=== PATIENT | male | born 1985 | race African-American/Black ===

== ENCOUNTER 2023-05-03 14:18 | Emergency (ER) | payer OTHER ==
[2023-05-03] MEDS ORDERED: Sodium Chloride 0.9% 1,000 ML ONE (15:54)
== END 2023-05-03 17:00 ==
LOC: EDBD 14:18 → MADERS 14:18
DX: T63.441A Toxic effect of venom of bees, accidental (unintentional), initial encounter (principal); I10 Essential (primary) hypertension; E66.9 Obesity, unspecified; F17.220 Nicotine dependence, chewing tobacco, uncomplicated
CPT/HCPCS: 93005; 94760; 96360; J7050